=== PATIENT | male | born 1975 | race Caucasian/White ===

== ENCOUNTER 2018-11-23 10:30 | Emergency (ER) | payer OTHER ==
[~2018-11-23] VITALS: Ht 177.8 cm; Wt 107.9 kg
[2018-11-23 10:32] VITALS: Ht 177.8 cm; Wt 107.9 kg
[2018-11-23] MEDS ORDERED: ONDANSETRON 4 MG INJ IV STA (11:06)
[2018-11-23] MEDS ORDERED: morphine 2 MG INJ IV STA (11:06)
[2018-11-23] MEDS ORDERED: SOD CHLORIDE 0.9% 1,000 ML IV STA (11:06)
--- NOTE | 2018-11-23 11:09 | ERD ---
ER Documentation Chief Complaint Chief Complaint abdominal pain x 4 days HPI 43-year-old male, previously healthy, presents to the emergency department, referred by the urgent care for evaluation of possible appendicitis. The patien t is complaining of 2 days with worsening of right lower quadrant abdominal pain, associated with fever, T-max 102.5. The patient has not taking any medications at this time. He denies nausea, no vomiting, no diarrhea or constipation. He denies any upper respiratory symptoms, no rashes. ROS All systems reviewed and are negative except as per history of present illness. Medications Home Meds Active Scripts Inhaler, Assist Devices (Compact Space Chamber) 1 Each Spacer, EACH MC QID PRN for COUGH, #1 Prov:FE CLINE MD 11/23/18 Albuterol Sulfate* (Proair HFA*) 8.5 Gm Hfa.aer.ad, 2 PUFF INH Q4H PRN for W HEEZING AND SOB, #1 INHALER Prov:FE CLINE MD 11/23/18 Ibuprofen* (Motrin*) 400 Mg Tab, 400 MG PO Q8, #15 TAB Prov:FE CLINE MD 11/23/18 Levofloxacin* (Levaquin*) 750 Mg Tablet, 750 MG PO DAILY for 7 Days, TAB Prov:FE CLINE MD 11/23/18 Allergies Allergies: Coded Allergies: No Known Allergy (Unverified , 11/23/18) PMhx/Soc Medical and Surgical Hx: pt denies Medical Hx, pt denies Surgical Hx Hx Alcohol Use: No Hx Substance Use: No Hx Tobacco Use: Yes Smoking Status: Current every day smoker Physical Exam Vitals Vital Signs Date Temp Pulse Resp B/P (MAP) Pulse Ox O2 O2 Flow FiO2 Time Delivery Rate 11/23/18 98.1 86 18 108/61 96 Room Air 14:13 (77) 11/23/18 100 20 88 21 12:50 11/23/18 103.1 116 20 139/80 93 10:32 (99) Physical Exam Patient alert, oriented, vital signs show fever and tachycardia. HEENT: Normocephalic, atraumatic. EYES: PERRLA, EOMI, Sclera and conjunctiva appear normal. EARS: Canals clear, tympanic membranes WNL. THROAT: Normal oropharynx. NECK: Supple, No lymphadenopathy. Full ROM without pain or tenderness. HEART: RRR, no rubs, murmurs, clicks or gallops. LUNGS: Bibasilar rhonchi to auscultation. ABDOMEN: Guarded, tender to palpation in the right lower quadrant, without masses or hepatosplenomegaly. EXTREMITIES: No edema bilaterally. BACK: Full ROM, no deformity, normal back exam NEURO: Cranial nerves grossly intact, no motor or sensory deficit Result Diagram: 11/23/18 1118 11/23/18 1115 Results 24 hrs Laboratory Tests Test 11/23/18 11:15 11/23/18 11:18 Urine Color YELLOW Urine Clarity CLEAR Urine pH 6.0 Urine Specific [place] 1.025 Urine Ketones 1+ mg/dL Urine Nitrite NEGATIVE mg/dL Urine Bilirubin NEGATIVE mg/dL Urine Urobilinogen 1+ mg/dL Urine Leukocyte Esterase NEGATIVE Nilson/ul Urine Microscopic RBC 13 /HPF Urine Microscopic WBC 2 /HPF Urine Bacteria FEW /HPF Urine Mucus MODERATE /HPF Urine Hemoglobin 1+ mg/dL Urine Glucose NEGATIVE mg/dL Urine Total Protein 3+ mg/dl Sodium Level 136 mmol/L Potassium Level 3.5 mmol/L Chloride Level 103 mmol/L Carbon Dioxide Level 22 mmol/L Anion Gap 11 Blood Urea Nitrogen 16 mg/dl Creatinine 0.95 mg/dl Est Glomerular Filtrat Rate mL/min > 60 mL/min Glucose Level 115 mg/dl Calcium Level 8.8 mg/dl Total Bilirubin 0.3 mg/dl Direct Bilirubin 0.00 mg/dl Indirect Bilirubin 0.3 mg/dl Aspartate Amino Transf (AST/SGOT) 27 IU/L Alanine Aminotransferase (ALT/SGPT) 38 IU/L Alkaline Phosphatase 79 IU/L Total Protein 6.7 g/dl Albumin 3.7 g/dl Globulin 3.00 g/dl Albumin/Globulin Ratio 1.23 Lipase 78 U/L White Blood Count 13.5 10^3/ul Red Blood Count 4.43 10^6/ul Hemoglobin 13.9 g/dl Hematocrit 40.1 % Mean Corpuscular Volume 90.5 fl Mean Corpuscular Hemoglobin 31.4 pg Mean Corpuscular Hemoglobin Concent 34.7 g/dl Red Cell Distribution Width 12.4 % Platelet Count 218 10^3/UL Mean Platelet Volume 10.2 fl Immature Granulocytes % 0.400 % Neutrophils % 86.1 % Lymphocytes % 8.4 % Monocytes % 4.8 % Eosinophils % 0.0 % Basophils % 0.3 % Nucleated Red Blood Cells % 0.0 /100WBC Immature Granulocytes # 0.050 10^3/ul Neutrophils # 11.6 10^3/ul Lymphocytes # 1.1 10^3/ul Monocytes # 0.7 10^3/ul Eosinophils # 0.0 10^3/ul Basophils # 0.0 10^3/ul Nucleated Red Blood Cells # 0.0 10^3/ul Current Medications Medications Dose Sig/López Start Time Status Last (Trade) Ordered Route PRN Stop Time Admin Dose Reason Admin Sodium 1,000 ml @ Q1H STAT 11/23/18 DC 11/23/18 Chloride 1,000 mls/hr IV 11:06 11:25 11/23/18 12:05 Morphine 2 mg ONCE STAT 11/23/18 DC 11/23/18 Sulfate IV 11:06 11:24 (morphine) 11/23/18 11:15 Ondansetron 4 mg ONCE STAT 11/23/18 DC 11/23/18 HCl (Zofran IV 11:06 11:24 Inj) 11/23/18 11:15 650 mg ONCE ONCE 11/23/18 DC 11/23/18 Acetaminophen PO 11:30 11:24 (Tylenol 11/23/18 Tab) 11:31 Ibuprofen 400 mg ONCE ONCE 11/23/18 DC 11/23/18 (Motrin) PO 11:30 11:24 11/23/18 11:31 Piperacillin 100 ml @ ONCE ONCE 11/23/18 DC 11/23/18 Sod/ 200 mls/hr IVPB 12:00 11:56 Tazobactam 11/23/18 Sod 12:29 Sodium 1,000 ml @ Q1H ONCE 11/23/18 DC 11/23/18 Chloride 1,000 mls/hr IV 12:00 12:27 11/23/18 12:59 Albuterol 5 mg ONCE STAT 11/23/18 DC 11/23/18 (Proventil HHN 12:10 12:49 0.083% (Neb)) 11/23/18 12:12 Ipratropium 0.5 mg ONCE ONCE 11/23/18 DC 11/23/18 [place] HHN 12:30 12:49 (Atrovent 11/23/18 0.02% 12:31 (Neb)) 500 mg ONCE STAT 11/23/18 DC 11/23/18 Azithromycin PO 12:38 13:11 (Zithromax) 11/23/18 12:44 DIAGNOSTIC IMAGING REPORT Patient: LON SALGADO : 1975 Age: 43 Sex: M MR #: [id number] DOS: 11/23/18 1136 Ordering MD: FE CLINE MD Location: [facility] Room/Bed: PROCEDURE: CT Abdomen and Pelvis without contrast. CLINICAL INDICATION: Right lower quadrant pain. TECHNIQUE: Routine axial tomographic images of the abdomen and pelvis were obtained from the domes the diaphragm to the symphysis pubis. The patient was scanned withoutoral or intravenous contrast. Coronal and sagittal reformatted images were obtained from the axial source images. Images were reviewed on a high-resolution PACS workstation. The total exam CTDI equals 19.03 mGy and the t otal exam DLP equals 1174.85 mGy-cm. One or more of the following dose reduction techniques were used: Automated exposure control, adjustment of the mA and / or kV according to patient size, or use of iterative reconstruction technique. DICOM images are available. COMPARISON: None. FINDINGS: The visualized portions of the lung bases demonstrate consolidation of the left lower lobe with air bronchograms. There are patchy right lower lobe ground glass opacities. Evaluation of the intra-abdominal solid organs is somewhat limited on this noncontrast examination. The liver appears normal in size. The liver parenchyma demonstrates diffuse hypoattenuation. There is no intra or extr ahepatic biliary dilatation. The gallbladder is unremarkable by CT criteria. The spleen, pancreas, and adrenal glands are unremarkable. The kidneys are symmetric in size. No renal, ureteral, or bladder calculi are identified. No perinephric inflammatory changes are identified. The urinary bladder is grossly unremarkable. The bowel demonstrates normal course and caliber. There is no evidence of bowel obstruction. The appendix is normal in appearance. The pelvic organs are grossly unremarkable. No intraperitoneal free fluid, free air, or abscess is identified. No retroperitoneal, mesenteric, or inguinal lymphadenopathy is identified. The aorta is normal in caliber. The osseous structures demonstrate degenerative changes of the spine with multilevel intervertebral disc space narrowing, discogenic endplate changes and facet arthropathy. No significant subcutaneous soft tissue abnormalities are seen. IMPRESSION: 1. Left lower lobe pneumonia. 2. Hepatic steatosis. 3. Degenerative changes of the spine. RPTAT: HH .Sarah Eddy MD, MD Date Time Electronically viewed and signed by .Sarah Eddy MD, MD on 11/23/2018 12:05 .G/ CC: FE CLINE MD [phone] EKG read by me: Rate/Rhythm: Regular rate and rhythm at a rate of 105 Intervals: Normal No acute ST changes. No T wave inversion Impression: No evidence of acute ischemia or arrhythmia Procedures/MDM Vital signs stable. Differential diagnosis include but not limited to: UTI, colitis, gastroenteritis, kidney stones, irritable bowel syndrome, inflammatory bowel syndrome, malabsorption syndrome, cholelithiasis, food intolerance, medication side effect, pancreatitis, diverticulitis, bowel obstruction. Physical examination and clinical presentation consistent most likely with left lower lobe pneumonia. During the ED course the patient remained stable, no new complaints. The patient received treatment with IV fluids and IV medications presenting overall improvement of the symptoms. Results and clinical impression discussed with the patient who agrees with management. Medical decision making shared with patient he is stable to be t reated outpatient and will be discharged home; some side effects of prescribed medications (headache, rash, nausea, vomiting, diarrhea, drowsiness, habituation, bleeding, hypertension, interactions with other medications) were reviewed. Follow up with the primary care provider in the next 48h is recommended. If symptoms persist, worsen or new symptoms develop, then patient should return to the ED immediately. Instructions explained and given directly by me to the patient with acknowledgment and demonstrated understanding. Disclaimer: Inadvertent spelling and grammatical errors are likely due to EHR/dictation software use and do not reflect on the overall quality of patient care. Also, please note that the electronic time recorded on this note does not necessarily reflect the actual time of the patient encounter. Departure Diagnosis: Primary Impression: Community acquired pneumonia Condition: Stable Additional Instructions: Thank you very much for allowing us to participate in your care. Your health and safety is our top priority at [facility]. Call your primary care doctor TOMORROW for an appointment during the next 2-4 days and bring all the information and medications prescribed. Have prescriptions filled and follow precisely the directions on the label. If the symptoms get worse and your provider is unavailable, return to the Emergency Department immediately. FE CLINE MD Nov 23, 2018 11:09
[2018-11-23] MEDS ORDERED: ACETAMINOPHEN 325 MG TAB PO ONE (11:30)
[2018-11-23] MEDS ORDERED: IBUPROFEN 200 MG TAB PO ONE (11:30)
[2018-11-23] MEDS ORDERED: PIPER-TAZO 3.375 GM IV (PMX) 100 ML IVPB ONE (12:00)
[2018-11-23] MEDS ORDERED: SOD CHLORIDE 0.9% 1,000 ML IV ONE (12:00)
[2018-11-23] MEDS ORDERED: ALBUTEROL 0.083% (NEB) 2.5 MG/3 ML AMP HHN STA (12:10)
[2018-11-23] MEDS ORDERED: IPRATROPIUM (NEB) 0.5 MG/2.5 ML AMP HHN ONE (12:30)
[2018-11-23] MEDS ORDERED: AZITHROMYCIN 250 MG TAB PO STA (12:38)
[2018-11-23] MEDS ORDERED: ALBU8.5H8 INH (13:01)
[2018-11-23] MEDS ORDERED: LEVO750T25 PO (13:01)
[2018-11-23] MEDS ORDERED: INHA-3 MC (13:01)
[2018-11-23] MEDS ORDERED: IBUP-1561 PO (13:01)
[2018-11-23 14:13] VITALS: BP 108/61; PULSE 86; RESP 18
== END 2018-11-23 14:21 | disposition home or self-care (01) ==
LOC: FTE 10:30
DX: J18.9 Pneumonia, unspecified organism (principal); F17.210 Nicotine dependence, cigarettes, uncomplicated
CPT/HCPCS: 36415; 74176; 80053; 81001; 83690; 85025; 93005; 94664; 96361; 96365; 96375; J2270; J2405; J2543; J7030; Z7502; Z7610